=== PATIENT | male | born 1990 | race Two or more races ===

== ENCOUNTER 2025-02-23 18:10 | Inpatient (IN) | payer MEDICAID, SELFPAY ==
[2025-02-23 18:35] VITALS: BP 151/98; PULSE 103; RESP 18; TEMP 37.6; O2SAT 96
--- NOTE | 2025-02-23 18:46 | PD.EDRECHK ---
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 Patient only symptoms are dry mouth, SÁNCHEZ, and muscle cramps. Patient denies URI symptoms and fevers/chills. Limitations: no limitations Related Data Allergies Allergy/AdvReac Type Severity Reaction Status Date / Time NKA* Allergy Uncoded 02/23/25 18:14 Review of Systems Review of Systems Systems Reviewed: All systems reviewed, normal except as documented Constitutional Constitutional: Reports system reviewed and no additional complaints, except as documented, Reports as per HPI, Denies fever(s) and Reports headache(s) ENT Ears, Nose, Mouth, and Throat: Reports as per HPI, Denies disequilibrium, Reports headache(s) and Reports other (dry mouth) Cardiovascular Cardiovascular: Reports system reviewed and no additional complaints, except as documented, Denies chest pain and Denies dyspnea Respiratory Respiratory: Reports system reviewed and no additional complaints, except as documented, Denies cough and Denies dyspnea Gastrointestinal Gastrointestinal: Reports system reviewed and no additional complaints, except as documented, Denies abdominal pain, Denies nausea and Denies vomiting Musculoskeletal Musculoskeletal: Reports as per HPI and Reports muscle cramps Neurologic Neurologic: Reports system reviewed and no additional complaints, except as documented, Denies confusion, Denies disequilibrium and Reports headache(s) Psychiatric Psychiatric: Denies confusion Past Medical History Social History SMOKING STATUS: Never smoker ED Exam General Limitations: Present no limitations General appearance: Present alert and in no apparent distress Head Head exam: Present atraumatic Eye Eye exam: Present normal appearance, PERRL and EOMI ENT ENT exam: Present normal exam, normal oropharynx and mucous membranes moist Neck Neck exam: Present normal inspection, full ROM and trachea midline Chest Chest inspection: Present normal inspection and symmetric chest wall rise Respiratory Respiratory exam: Present normal lung sounds bilaterally Cardiovascular Cardiovascular exam: Present regular rate, normal rhythm and normal heart sounds Abdominal Exam Abdominal exam: Present soft and normal bowel sounds Extremities Exam Extremities exam: Present normal inspection and full ROM Back Exam Back exam: Present normal inspection and full ROM Neurological Exam Neurological exam: Present alert, oriented X3 and CN II-XII intact Psychiatric Psychiatric exam: Present normal affect and normal mood Skin Skin exam: Present warm, dry, intact and normal color Course Quality Measures none Orders Category Date Time Status COVID-19 Screening Questionnaire NOW Care 02/23/25 21:14 Active Decision to Admit X1 Care 02/23/25 21:14 Completed A1C [Glycohemoglobin w (eAG)] Stat Lab 02/23/25 19:27 Completed Beta Hydroxybutyrate Stat Lab 02/23/25 19:27 Completed CBC Stat Lab 02/23/25 19:27 Completed CMP [Comprehensive Metabolic Panel] Stat Lab 02/23/25 19:27 Completed Drug Screen,Urine Stat Lab 02/23/25 19:48 Completed Lipase Stat Lab 02/23/25 19:27 Completed Urinalysis, C/S if Indicated Stat Lab 02/23/25 19:48 Completed VBG [Venous Blood Gas] Stat Lab 02/23/25 19:27 Completed Vital Signs Vital signs: Vital Signs Temperature 99.6 F 02/23/25 18:35 Pulse Rate 103 H 02/23/25 18:35 Respiratory Rate 18 02/23/25 18:35 Blood Pressure 151/98 H 02/23/25 18:35 Pulse Oximetry (%) 96 02/23/25 18:35 Oxygen Delivery Method Room Air 02/23/25 18:35 O2 at 96% on RA and WNLs Recheck / Abnormal Lab / Rx MDM Narrative MDM Narrative:: 34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 Patient only symptoms are dry mouth, SÁNCHEZ, and muscle cramps. Patient denies URI symptoms and fevers/chills. Physical exam reveals well-appearing male. Normal WOB. Patient is afebrile, calm, and alert. No leukocytosis. CMP remarkable for mildly elevated anion gap of 17. BS 400s. Beta around 2. Blood pH normal. A1C around 10%. Spoke to IM Resident who reports to Dr. García who will admit the patient. Patient data External records reviewed:: None Clinical information provided by:: patient Social determinants that could affect healthcare access:: none Patient has the following chronic illnesses:: none How is presenting disease/condition affected by chronic disease/condition?: no chronic disease Evaluation data The following diagnostics were reviewed and interpreted by me:: lab results Lab and/or radiology exams considered but not ordered:: ordered Interpretation Summary: above Medications / Prescriptions Medications or Prescriptions considered but not ordered:: ordered Medication administrations:: Medication Administration History Acetaminophen (Acetaminophen 325 Mg Tablet) 650 mg PO Q6H PRN PRN Reason: PAIN SCALE 1-3 (mild Stop: 03/25/25 21:44 Acetaminophen (Acetaminophen 325 Mg Tablet) 650 mg PO Q6H PRN PRN Reason: Fever >100.4 Stop: 03/25/25 21:44 Hydrocodone Bitart/Acetaminophen (Hydrocodone/Apap 325 Tab) 1 tab PO Q4HR PRN PRN Reason: PAIN SCALE 7-10 (Severe Stop: 02/28/25 21:44 Dextrose (Dextrose 50%-Water Inj 50 Ml Syringe) 25 ml IV Q15MIN PRN PRN Reason: BG 50-70 responsive npo pt Stop: 03/25/25 21:44 Dextrose (Dextrose 50%-Water Inj 50 Ml Syringe) 50 ml IV Q15MIN PRN PRN Reason: BG <50 OR BG <70 & pt unresponsive Stop: 03/25/25 21:44 Glucagon (Glucagon Inj 1 Mg Vial) 1 mg IM Q15MIN PRN PRN Reason: BG <70, and no IV access Lactated Ringer's (Lactated Ringers) 1,000 mls @ 150 mls/hr IV .Q6H40M NILESH Stop: 03/25/25 21:44 Last Admin: 02/23/25 22:04 Dose: 150 mls/hr Documented By: EE Sodium Chloride (Ns) 1,000 mls @ 999 mls/hr IV .Q1H1M ONE Stop: 02/23/25 22:45 Last Admin: 02/23/25 22:03 Dose: 999 mls/hr Documented By: EE Lactated Ringer's (Lactated Ringers) 1,000 mls @ 999 mls/hr IV .Q1H1M ONE Stop: 02/23/25 22:45 Last Admin: 02/23/25 22:04 Dose: 999 mls/hr Documented By: EE Ondansetron HCl (Ondansetron Inj 2 Mg/Ml Inj 2 Ml) 4 mg IVP Q6H PRN; Protocol PRN Reason: NAUSEA OR VOMITING Stop: 03/25/25 21:44 Oxycodone/Acetaminophen (Oxycodone/Apap 5/325 Tablet) 1 tab PO Q6H PRN PRN Reason: PAIN SCALE 4-6 (Moderate Stop: 02/28/25 21:44 Pantoprazole Sodium (Pantoprazole Inj 40 Mg Vial) 40 mg IVP QDAY NILESH Stop: 03/26/25 08:59 Discontinued Medications Insulin Human Lispro (Insulin Lispro (Admelog) 1 Unit/0.01 Ml Unit) 10 unit SC X1 ONE Stop: 02/23/25 21:46 Last Admin: 02/23/25 22:04 Dose: 10 unit Documented By: LENO Co-signed By: CB above Consultations Consultation(s) initiated? (list below): Yes Diagnosis Recheck Differential Diagnosis: encounter for medication refill, encounter for wound recheck, encounter for recheck of burn, encounter for removal of sutures, warfarin-induced coagulopathy and other (hyperglycemia, DKA) Most likely diagnosis given after review of the tests above:: hyperglycemia Admission Indicated Admission indicated?: indicated Admission Request Was there a request for admission?: Yes Admission Attestation Admission request attestation: Discussed case with [Dr. García] from Hospitalist service regarding admission. Discussed patients ED course, exam findings, labs, and radiology results. The Hospitalist [agrees] to accept the patient for admission. Disposition Plan Disposition Plan: Admit Discharge Plan Plan Patient Disposition: Admit Acute Care w/in Hospital Problem List Clinical Impression: Hyperglycemia
[2025-02-23 19:39] LABS: Base Excess, Venous -2 (-3-3); O2 Saturation, Venous 75 % (96-97); PCO2, Venous 38 mmHg (36-56); PO2, Venous 40 mmHg (15-58); pH, Venous 7.38 (7.33-7.66)
[2025-02-23 19:40] LABS: Basophils # (Auto) 0.1 Thou/mm3 (0.0-0.2); Basophils % (Auto) 1 % (0-2.5); Eosinophils # (Auto) 0.1 Thou/mm3 (0.0-0.5); Eosinophils % (Auto) 1 % (0-10); Hematocrit 45.4 % (41.0-53.0); Hemoglobin 16.0 g/dL (13.5-16.0); Immature Granulocytes Auto 0.02 Thou/mm3 (0.00-0.00); Lymphocytes # (Auto) 2.4 Thou/mm3 (1.0-4.8); Lymphocytes % (Auto) 28 % (10-50); Mean Corpuscular HGB Conc 35.2 g/dl (31.0-37.0); Mean Corpuscular Hemoglobin 29.0 pg (25.0-35.0); Mean Corpuscular Volume 82 fL (80-100); Monocytes # (Auto) 0.7 Thou/mm3 (0.0-0.8); Monocytes % (Auto) 8 % (0-12); Neutrophils # (Auto) 5.3 Thou/mm3 (1.8-7.7); Neutrophils % (Auto) 63 % (37-80); Nucleated Red Blood Cell # 0.00 Thou/mm3 (0.00-0.00); Nucleated Red Blood Cell % 0 /100 WBC (0); Platelet Count 259 Thou/mm3 (140-440); RDW Standard Deviation 36.3 fL (35.1-43.9); Red Blood Count 5.52 Miln/mm3 (4.50-5.90); White Blood Count 8.5 Thou/mm3 (3.8-10.6)
[2025-02-23 19:43] LABS: Beta Hydroxybutyrate 2.3 mmol/L (<0.6)
[2025-02-23 19:52] LABS: Glucose Estimated Average 255 mg/dL (80-131); Hemoglobin A1C 10.5 % Hgb (4.8-6.0)
[2025-02-23 19:54] LABS: Collection Type, Urine Clean Catch; Squamous Epithelial Cell,Urine 0 /hpf (0-5)
[2025-02-23 20:03] LABS: Bilirubin,Urine Negative (Negative); Blood,Urine Trace (Negative); Clarity,Urine Clear (Clear/Hazy); Color,Urine Lt-Yellow (Lt Yel-Yel); Culture Indicated,Urine Not Indicated; Glucose, Urine 4+ (Negative); Hyaline Casts,Urine < 1 /hpf (0-1); Ketones,Urine 3+ (Negative); Leukocyte Esterase,Urine Negative (Negative); Nitrite,Urine Negative (Negative); PH,Urine 5.5 (5.0-7.0); Protein,Urine 1+ (Neg - Trace); RBC,Urine 7 /hpf (0-3); Specific Gravity,Urine 1.043 (1.001-1.035); Urobilinogen,Urine Negative mg/dL (0.0-1.0); WBC,Urine 3 /hpf (0-5)
[2025-02-23 20:11] LABS: Amphetamine/Methamp Scrn,U Negative (Negative); Barbiturate Screen,Urine Negative (Negative); Benzodiazepines Screen,Urine Negative (Negative); Benzoylecgonine Screen, Ur Negative (Negative); Fentanyl Screen,Urine Negative (Negative); Opiate Screen,Urine Negative (Negative); THC Screen,Urine Negative (Negative)
[2025-02-23 20:17] LABS: Alanine Aminotransferase 197 U/L (10-49); Albumin, Serum 5.2 gm/dL (3.5-5.0); Albumin/Globulin Ratio 1.7 (1.2-2.2); Alkaline Phosphatase 153 U/L (46-116); Anion Gap 17 (7-16); Aspartate Amino Transferase 124 U/L (0-34); BUN/Creatinine Ratio 10 Ratio (12-20); Bilirubin,Total 0.9 mg/dL (0.3-1.2); Blood Urea Nitrogen 13 mg/dL (9-23); Calcium 11.0 mg/dL (8.3-10.6); Calcium (Corrected) 11.0 mg/dL (8.5-10.1); Carbon Dioxide 21.3 mMol/L (20.0-31.0); Chloride 98 mMol/L (98-107); Creatinine (Component) 1.3 mg/dL (0.6-1.3); Globulin 3.1 gm/dL (2.3-3.5); Lipase 60 U/L (12-53); Potassium 4.2 mMol/L (3.4-5.1); Sodium 136 mMol/L (136-145); Total Protein 8.3 gm/dL (5.7-8.2); eGFR > 60 See Note
[2025-02-23 20:49] LABS: Osmolality,Calculated 291 (275-295)
[2025-02-23 20:50] LABS: Glucose 444 mg/dL (74-106)
--- NOTE | 2025-02-23 21:53 | ESHP_ITS ---
Documentation for date of: 02/23/25 HPI History of Present Illness History of present illness: This is a 34-year-old male with past medical history of valley fever diagnosed 13 years ago, fully treated to his knowledge, presenting to ED with concern for hyperglycemia. He is otherwise healthy, reportedly has no previous health concerns, does not not follow-up with a PCP, last annual checkup was years ago. However, over the last few days has been having diffuse abdominal pain associated with nausea and several episodes of vomiting stomach contents. Abdominal pain appears mild, unrelated to eating, lasting throughout the day. He was seen at [facility] today and was found hypoglycemic and was advised to come in to the hospital for further evaluation. Currently complains of mild shortness of breath but denies cough, chest pain or palpitations. Also denies abdominal pain, nausea, vomiting, constipation, diarrhea, urinary urgency or frequency, dysuria, or hematuria. Past Medical History: * Valley fever treated 13 years ago. Past Surgical History: * None. Medications: * None. Allergies: * NKA. Family History: * Diabetes in mother. Social History: * Drinks 1 beer daily, denies alcohol or illicit drug use. 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 ED Course: * T99.6, HR 103, BP 151/98, satting 96% on room air. * CBC unremarkable. * CHEM panel significant for GLUCOSE 444, A1c 10.5, BHB 2.3, gap 17, creatinine 1.3, GFR greater than 60, BUN 13, corrected calcium 11, lipase 60, AST 124, ALT 197, ALP 153. * UA remarkable for 1+ protein, 4+ GLUCOSE, 4+ ketones, 7 RBC. * U tox is negative. * CXR showed no active disease. Reason for admission: He likely has newly diagnosed diabetes mellitus with A1c 10.5, and GLUCOSE 444, mildly elevated anion gap 17, as well as mild JAMISON requiring admission for INSULIN and fluid resuscitation. No concern for DKA at this point given ABG and CO2. Has mild transaminitis, tachycardia, and slightly hypertensive warranting further evaluation. Exam Vital Signs Temp Pulse Resp BP Pulse Ox O2 Del Method 99.6 F 103 H 18 151/98 H 96 Room Air 02/23/25 18:35 02/23/25 18:35 02/23/25 18:35 02/23/25 18:35 02/23/25 18:35 02/23/25 18:35 Narrative Exam GENERAL * Normal appearing man, NAD. HEENT * NCAT.?SHUN. Oral mucosa is moist. Patent Nares NECK * Supple, nontender, no JVD. CHEST * Mildly tachycardic, regular rhythm, no m/g/r * CTAB, no w/r/r, symmetrical expansion. ABDOMEN * Soft, flat, nontender. No guarding/rebound tenderness/masses. * Bowel sounds presents EXTREMITIES * No edema/cyanosis.? SKIN * Warm and dry, no jaundice/rashes. NEUROMUSCULAR * No lumbar or midline, no CVA, no paraspinal muscle spasm or tenderness. * Moves all 4 extremities well, with full ROM and good CSM. * SCHAFER x4, CN II-XII grossly intact. * No focal neurologic deficits. PSYCHIATRY * Normal mood and affect, cooperative, no SI or HI or hallucinations. Results: Labs 02/24/25 04:49 02/24/25 04:49 Labs: Short CBC 02/23/25 Range/Units 19:27 WBC 8.5 (3.8-10.6) Thou/mm3 Hgb 16.0 (13.5-16.0) g/dL Hct 45.4 (41.0-53.0) % Plt Count 259 (140-440) Thou/mm3 BMP 02/23/25 19:27 Sodium 136 Potassium 4.2 Chloride 98 Carbon Dioxide 21.3 BUN 13 Creatinine 1.3 Glucose 444 H* Calcium 11.0 H Liver Function 02/23/25 Range/Units 19:27 Total Bilirubin 0.9 (0.3-1.2) mg/dL AST 124 H (0-34) U/L ALT 197 H (10-49) U/L Alkaline Phosphatase 153 H (46-116) U/L Albumin 5.2 H (3.5-5.0) gm/dL Urine 02/23/25 Range/Units 19:48 Urine Color Lt-Yellow (Lt Yel-Yel) Urine Clarity Clear (Clear/Hazy) Urine pH 5.5 (5.0-7.0) Ur Specific [place] 1.043 H (1.001-1.035) Urine Protein 1+ A (Neg - Trace) Urine Glucose (UA) 4+ A (Negative) ABG Interpretation ABG results: 02/23/25 19:27 VBG pH 7.38 VBG pCO2 38 VBG pO2 40 VBG Base Excess -2 Quality Measures Quality Measures none Medications Home Medications and Allergies Home Medications ?Medication ?Instructions ?Recorded ?Confirmed ?Type No Known Home Medications 02/24/2510/15 History Allergies Allergy/AdvReac Type Severity Reaction Status Date / Time NKA* Allergy Uncoded 02/23/25 18:14 Visit Medications Acetaminophen (Acetaminophen 325 Mg Tablet) 650 mg PO Q6H PRN PRN Reason: PAIN SCALE 1-3 (mild Stop: 03/25/25 21:44 Acetaminophen (Acetaminophen 325 Mg Tablet) 650 mg PO Q6H PRN PRN Reason: Fever >100.4 Stop: 03/25/25 21:44 Hydrocodone Bitart/Acetaminophen (Hydrocodone/Apap Tab) 1 tab PO Q4HR PRN PRN Reason: PAIN SCALE 7-10 (Severe Stop: 02/28/25 21:44 Dextrose (Dextrose 50%-Water Inj 50 Ml Syringe) 25 ml IV Q15MIN PRN PRN Reason: BG 50-70 responsive npo pt Stop: 03/25/25 21:44 Dextrose (Dextrose 50%-Water Inj 50 Ml Syringe) 50 ml IV Q15MIN PRN PRN Reason: BG <50 OR BG <70 & pt unresponsive Stop: 03/25/25 21:44 Glucagon (Glucagon Inj 1 Mg Vial) 1 mg IM Q15MIN PRN PRN Reason: BG <70, and no IV access Lactated Ringer's (Lactated Ringers) 1,000 mls @ 150 mls/hr IV .Q6H40M NILESH Stop: 03/25/25 21:44 Sodium Chloride (Ns) 1,000 mls @ 999 mls/hr IV .Q1H1M ONE Stop: 02/23/25 22:45 Lactated Ringer's (Lactated Ringers) 1,000 mls @ 999 mls/hr IV .Q1H1M ONE Stop: 02/23/25 22:45 Insulin Human Lispro (Insulin Lispro (Admelog) 1 Unit/0.01 Ml Unit) 10 unit SC X1 ONE Stop: 02/23/25 21:46 Ondansetron HCl (Ondansetron Inj 2 Mg/Ml Inj 2 Ml) 4 mg IVP Q6H PRN; Protocol PRN Reason: NAUSEA OR VOMITING Stop: 03/25/25 21:44 Oxycodone/Acetaminophen (Oxycodone/Apap 5/325 Tablet) 1 tab PO Q6H PRN PRN Reason: PAIN SCALE 4-6 (Moderate Stop: 02/28/25 21:44 Pantoprazole Sodium (Pantoprazole Inj 40 Mg Vial) 40 mg IVP QDAY NILESH Stop: 03/26/25 08:59 Assessment & Plan Plan This is a 34-year-old male with past medical history of valley fever, treated 13 years ago, was sent by his PCP for new onset hyperglycemia. Hyperglycemia New onset diabetes mellitus, likely type II He was seen by his PCP for first time for symptoms of nausea and vomiting that started 2 days ago. He was found hyperglycemic and advised ED admission. No history of diabetes in the past. Labs significant for anion gap of 17, GLUCOSE 444, A1c 10.5, BHB 2.3. UA showed 4+ GLUCOSE and 3+ ketones. Low concern for DKA, CO2 21.3, pH 7.38. ? Given 1 L LR bolus ? Given insulin lispro 10 unit subcu, DEGLUDEC 15 units X1 ? Started INSULIN DEGLUDEC 20 units HS (starting Day 2) ? Started LR maintenance at 150 cc ? Hourly GLUCOSE checks, BMP Q6H ? Diet low carb consistent diet ? Diabetic education Mildly elevated lipase enzyme Lipase mildly elevated but 60, currently denies abdominal pain, and had no abdominal pain on exam. Low suspicion for acute pancreatitis, however we are treating with IV fluids as above. And will workup with other causes such as hypertriglyceridemia in settings of likely hypoglycemia. ? Pending lipid panel ? Continue to monitor. ? Consider CT abdomen if abdominal pain worsen or does not improve Elevated BP Tachycardia Likely has primary HTN Admission BP 151/98, HR 103. May be reactive in settings of stress, possibly has undiagnosed hypertension given that h he has never seen a PCP prior to this incident. ? Started LISINOPRIL 2.5 mg daily ? Continue monitoring Mild JAMISON Acute transaminitis Admission CR 1.3, BUN 13, AST 124, ALT 197, ALP 153. He reports history of alcohol use, on average 1 beer daily. Again, currently denies abdominal pain. These findings may be related to dehydration in setting of hyperglycemia. We followed up with abdominal ultrasound showed normal gallbladder, moderate hepatomegaly with fatty infiltrates, no focal liver lesions. Will follow-up hepatitis panel. ? Pending hepatitis panel ? Pending abdominal ultrasound ? Renally dose meds, avoid overdiuresis and NEPHROTOXINS ? Daily CMP Mild hypercalcemia Corrected calcium 11.0, likely transient in settings of dehydration. Anticipate improvement with fluid hydration. ? Daily labs Health maintenance Diet: CHO consistent, low carbs GI prophylaxis: PROTONIX DVT prophylaxis: Encourage ambulation Antibiotics: Not indicated CODE STATUS: Full code Disposition: Treating new onset hyperglycemia Case was discussed with attending physician, Dr. García. Compa Valdez, DO PGY II This document was transcribed using voice recognition technology. Minor inaccuracies may be present. Attending Provider Attestation/Addendum After examination of the patient and review of the clinical data I feel that this patient needs admission to the hospital for further treatment/evaluation. I Jesús García MD, attest that I was physically present for pond portions of evaluation, and examined patient, labs and imagings and plan of care were discussed with IM residents team, and I agree with the findings and plans documented above.
[2025-02-23] MEDS: RINGERS LACTATED 1000 ML 1,000 ML 999 ML IV ×2 (22:04→23:00)
[2025-02-23] MEDS: RINGERS LACTATED 1000 ML 1,000 ML 150 ML IV (22:04)
[2025-02-23] MEDS: INSULIN LISPRO (AdmeLOG) 1 UNIT/0.01 ML UNIT 10 UNIT SC (22:04)
--- NOTE | 2025-02-23 22:05 | XR_ITS ---
Examination: Abdomen sonogram, Limited Date and time of exam: February 23, 2025 2209 hrs. Indications: Elevated liver function tests on laboratory examination today. Technique: Real-time de jesus scale transabdominal sonographic images of the upper abdomen obtained. Findings: Normal gallbladder. Normal common bile duct 0.3 cm Pancreatic head 3.1 cm Liver 20.4 cm fatty infiltration. Normal hepatopedal portal venous flow patent IVC Impression: Normal gallbladder Moderate hepatomegaly fatty infiltration no focal liver lesions.
--- NOTE | 2025-02-23 22:10 | XR_ITS ---
Examination: AP chest single view Technique: AP portable upright chest single view Date and time: February 23, 2025 1018 hrs., Comparison July 2011 Indications: Shortness of breath today. Findings: Minimal prominence left ventricle No pneumonia or pulmonary edema. The osseous structures are intact. Impression: No active disease.
[2025-02-23 22:17] VITALS: BP 137/88; PULSE 96; RESP 18; TEMP 36.7; O2SAT 98
[2025-02-23 22:18] VITALS: PULSE 88
[2025-02-23] MEDS: POTASSIUM CHL 10 mEq IVPB 10 MEQ/100 ML BAG 100 MEQ IV (23:00)
[2025-02-23] MEDS: INSULIN DEGLUDEC 5 UNIT/0.05 ML (PER 5 UNITS) 15 UNIT SC (23:03)
[2025-02-23 23:43] LABS: Anion Gap 14 (7-16); BUN/Creatinine Ratio 13 Ratio (12-20); Blood Urea Nitrogen 14 mg/dL (9-23); Calcium 9.4 mg/dL (8.3-10.6); Carbon Dioxide 22.8 mMol/L (20.0-31.0); Chloride 102 mMol/L (98-107); Creatinine (Component) 1.1 mg/dL (0.6-1.3); Glucose 337 mg/dL (74-106); Osmolality,Calculated 291 (275-295); Potassium 3.9 mMol/L (3.4-5.1); Sodium 139 mMol/L (136-145); Troponin I < 0.020 ng/mL (0.0-0.045); eGFR > 60 See Note
[2025-02-23 23:50] VITALS: BP 143/91; PULSE 82; RESP 16; TEMP 36.3; O2SAT 98
[2025-02-24] VITALS (8 sets, daily range): BP systolic 114–143; BP diastolic 67–91; PULSE 60–82; RESP 14–19; TEMP 36.1–36.4; O2SAT 96–97; BMI 34.9
[2025-02-24] MEDS: POTASSIUM CHL 10 mEq IVPB 10 MEQ/100 ML BAG 100 MEQ IV ×2 (00:16→01:20)
[2025-02-24] MEDS: INSULIN LISPRO (AdmeLOG) 1 UNIT/0.01 ML UNIT 3 UNIT SC (01:50)
[2025-02-24] MEDS: POTASSIUM CHL 10 mEq IVPB 10 MEQ/100 ML BAG 75 MEQ IV (03:10)
[2025-02-24 04:23] LABS: Creatinine,Random Urine 154 mg/dL (30-125); Protein Total, Random Urine 24 mg/dL (1-14)
[2025-02-24] MEDS: RINGERS LACTATED 1000 ML 1,000 ML 150 ML IV ×2 (04:45→13:31)
--- NOTE | 2025-02-24 04:48 | PC.NURSE ---
[facility] downtime form [id number].
[2025-02-24 05:54] LABS: Basophils # (Auto) 0.1 Thou/mm3 (0.0-0.2); Basophils % (Auto) 1 % (0-2.5); Eosinophils # (Auto) 0.2 Thou/mm3 (0.0-0.5); Eosinophils % (Auto) 3 % (0-10); Hematocrit 36.1 % (41.0-53.0); Hemoglobin 12.7 g/dL (13.5-16.0); Immature Granulocytes Auto 0.03 Thou/mm3 (0.00-0.00); Lymphocytes # (Auto) 3.0 Thou/mm3 (1.0-4.8); Lymphocytes % (Auto) 42 % (10-50); Mean Corpuscular HGB Conc 35.2 g/dl (31.0-37.0); Mean Corpuscular Hemoglobin 29.4 pg (25.0-35.0); Mean Corpuscular Volume 84 fL (80-100); Monocytes # (Auto) 0.7 Thou/mm3 (0.0-0.8); Monocytes % (Auto) 10 % (0-12); Neutrophils # (Auto) 3.2 Thou/mm3 (1.8-7.7); Neutrophils % (Auto) 44 % (37-80); Nucleated Red Blood Cell # 0.00 Thou/mm3 (0.00-0.00); Nucleated Red Blood Cell % 0 /100 WBC (0); Platelet Count 195 Thou/mm3 (140-440); RDW Standard Deviation 37.3 fL (35.1-43.9); Red Blood Count 4.32 Miln/mm3 (4.50-5.90); White Blood Count 7.2 Thou/mm3 (3.8-10.6)
[2025-02-24 06:23] LABS: Alanine Aminotransferase 142 U/L (10-49); Albumin, Serum 4.0 gm/dL (3.5-5.0); Albumin/Globulin Ratio 1.7 (1.2-2.2); Alkaline Phosphatase 110 U/L (46-116); Anion Gap 13 (7-16); Aspartate Amino Transferase 92 U/L (0-34); BUN/Creatinine Ratio 12 Ratio (12-20); Bilirubin,Total 0.8 mg/dL (0.3-1.2); Blood Urea Nitrogen 11 mg/dL (9-23); Calcium 9.3 mg/dL (8.3-10.6); Calcium (Corrected) 9.3 mg/dL (8.5-10.1); Carbon Dioxide 24.0 mMol/L (20.0-31.0); Cardiac Risk Estimate 9.1 RATIO (4.0-6.7); Chloride 103 mMol/L (98-107); Cholesterol 210 mg/dL (132-200); Creatinine (Component) 0.9 mg/dL (0.6-1.3); Free T4 (Free Thyroxine) 1.45 ng/dL (0.89-1.76); Globulin 2.3 gm/dL (2.3-3.5); Glucose 270 mg/dL (74-106); HDL Cholesterol 23 mg/dL (40-60); Magnesium 1.8 mg/dL (1.6-2.6); Osmolality,Calculated 288 (275-295); Phosphorous 3.1 mg/dL (2.4-5.1); Potassium 3.6 mMol/L (3.4-5.1); Sodium 140 mMol/L (136-145); Thyroid Stimulating Hormone 1.70 uIU/mL (0.55-4.78); Total Protein 6.3 gm/dL (5.7-8.2); Triglycerides 432 mg/dL (30-150); eGFR > 60 See Note
--- NOTE | 2025-02-24 06:25 | PC.LAC ---
HGB 6.7, HCT 20.7, Dr. Kramer was made aware, no new orders for pt at this time.
[2025-02-24 06:51] LABS: Hepatitis A Antibody IgM Non Reactive (Non React); Hepatitis B Core Antibody IgM Non Reactive (Non React); Hepatitis B Surface Antigen Non Reactive (Non React); Hepatitis C Antibody Non Reactive (Non React)
[2025-02-24] MEDS: INSULIN LISPRO (AdmeLOG) 1 UNIT/0.01 ML UNIT SC ×2 (07:50→11:53)
--- NOTE | 2025-02-24 08:57 | PC.NURSE ---
Dr. Roman at bedside and notified HR 45. Checked vs BP 116/[address] Roman, hold Lisinopril 0900 dose.
[2025-02-24] MEDS: INSULIN DEGLUDEC 5 UNIT/0.05 ML (PER 5 UNITS) 20 UNIT SC (09:05)
--- NOTE | 2025-02-24 09:12 | PC.SS ---
Patient Eulogio Aldridge is a 34 -year-old male admitted for Hyperglycemia. SS made contact with patient at bedside and patient to complete initial and discuss discharge disposition. Role and reason for the contact was explained to patient. Demographic information was verified. Pt reports he lives at home with his life partner, Letty Choe who he reports is his surrogate decision maker [phone]. He is independent with all ADLs. Patient does not utilize any source of DME, or home O2. Pt[facility] of pharmacy [facility] to [facility] for medical services. At time of discharge patient will return home, life partner will provide transportation. Discharge Plan: Home Next of kin: Life partner, Letty Choe
--- NOTE | 2025-02-24 10:34 | ESDS_ITS ---
<Statement entered by Hailey Price MD - 02/24/25 22:15> Note reviewed, I agree with most of its contents and agree with the patient's care as documented by Dr. Roman. The patient's management plan was discussed with my attending physician Dr. Jeffers. Hailey Price, PGY-2 <Statement entered by Jumana Mead MD - 02/24/25 16:51> I discussed with and supervised the applications intern physician who took care of this patient. I personally saw and examined the patient and discussed the assessment and plan with the entire medicine team, including my attending Dr. Jeffers, I agree with most of the assessment and plan as documented below Jumana Mead M.D. PGY-3 Planned Discharge Date 02/24/25 DS: Providers Provider Date of admission: 02/23/25 21:45 Primary care physician: Physician No Primary/Family Admitting Provider: Jesús García MD Attending Provider on Admission: Jesús García MD Consults: 02/23/25 22:12 Referral Registered Dietitian Routine Comment: 02/24/25 10:09 Referral Registered Dietitian Routine Comment: Attending Provider on DC: Dr. Jeffers Discharging Provider: Resident Kiera Anticipated date of discharge: 02/24/25 DS: Diagnosis Problem List Completed Was Problem List Reviewed/Reconciled?: Yes Hospital Course Hospital Course Hospital course: This is a 34-year-old male with past medical history of valley fever, treated 13 years ago, was sent by his PCP for new onset hyperglycemia. He was seen by his PCP for first time for symptoms of nausea and vomiting that started 2 days ago. He was found hyperglycemic and advised ED admission. No history of diabetes in the past. On admission, labs significant for anion gap of 17, GLUCOSE 444, A1c 10.5, BHB 2.3. UA showed 4+ Glucose and 3+ ketones. Low concern for DKA, CO2 21.3, pH 7.38. In the ED, patient received 1L bolus LR, insluin Lispro 10u, Degludec 15 x1, followed by 20u on day 2. Patient was admitted for DKA rule out and new onset diabetes mellitus. DKA was ruled out based on laboratory findings and clinical picture. Patient's anion gap improved to 13. Patient and family were educated on his new DMT2 diagnoses, treatment options and mcfp management. 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 Patient's nausea and emesis resolved and overall conditions improved. Patient remains hemodynamically stable with vital signs within normal limits. Patient was also noted to have elevated lipase of 60, however denies any abdominal pain with unremarkable physical exam. This could have been in the setting of hypertrugelyceride which was noted to be 432. IVF hydration was started upon admission. Patient was advised to follow up with their PCP in regards to his lipid panel abnormalities for further work up and management outpatient. Patient was noted to have transaminitis which could be related to his chronic alcohol use. US showed moderate hepatomegaly. Overall, patients condition improved and is hemodynamically stable with vitals within normal limits. Patient is in stable condition for discharge. Diabetes education by pharmacist and dietitian was provided to the patient. All questions answered and ED return precautions given. #Hyperglycemia #DKA r/o #New onset diabetes mellitus, likely type II #Mildly elevated lipase enzyme #Elevated BP #Tachycardia #Likely primary HTN #HLD #Hypertrygelyceraidimia #Mild JAMISON #Acute transaminitis #Mild hypercalcemia Continue checking your blood sugar at home as instructed. You will be started on insulin injection and oral medication called metformin. Aim for 30 minutes of physical activity at least 5 times a day. Keep sugar source nearby to take if you experience symptoms of low blood sugar including lightheadedness, dizziness. Follow up with your PCP in 1-2 weeks. Labs in hospital showed high cholesterol. PCP will start you on a medication for control. If you do not have a PCP, you may call [facility] on [address] at [phone]. Plan was discussed with attending physician Dr. Jeffers and senior residents Drs. Price and Alyce. Paige Roman, DO PGY-1 Status at Discharge Functional status at discharge: independent ambulation Overall status at discharge: patient is back to baseline Time Spent with Patient Time attestation: Total time spent providing and/or coordinating discharge services: Time spent: Greater than 30 minutes Exam Vital Signs Temp Pulse Resp BP Pulse Ox O2 Del Method 97.3 F 63 14 116/67 96 Room Air 02/24/25 08:00 02/24/25 08:57 02/24/25 08:00 02/24/25 08:57 02/24/25 08:00 02/24/25 08:00 Narrative Exam GENERAL * Normal appearing man, NAD. HEENT * NCAT.?SHUN. Oral mucosa is moist. Patent Nares NECK * Supple, nontender, no JVD. CHEST * RRR, no m/g/r * CTAB, no w/r/r, symmetrical expansion. ABDOMEN * Soft, flat, nontender. No guarding/rebound tenderness/masses. * Bowel sounds presents EXTREMITIES * No edema/cyanosis.? SKIN * Warm and dry, no jaundice/rashes. NEUROMUSCULAR * No lumbar or midline, no CVA, no paraspinal muscle spasm or tenderness. * Moves all 4 extremities well, with full ROM and good CSM. * SCHAFER x4, CN II-XII grossly intact. * No focal neurologic deficits. PSYCHIATRY * Normal mood and affect, cooperative, no SI or HI or hallucinations. Discharge Plan Plan Patient Disposition: HOME (Self Care) Patient condition on transfer: Stable Prescriptions/Referrals Prescriptions/Med Rec: New metformin 500 mg tablet 500 mg PO BID 30 Days Qty: 60 0RF (DME) pen needle, diabetic 29 gauge x 1/2 needle See Rx Instructions .Route Qty: 100 0RF Rx Instructions: As directed (DME) blood-glucose meter Kit See Rx Instructions .Route Qty: 1 0RF Rx Instructions: As directed (DME) Blood Glucose Test Strip See Rx Instructions .Route Qty: 50 0RF Rx Instructions: As directed insulin glargine [Lantus Solostar U-100 Insulin] 100 unit/mL (3 mL) insulin pen 20 unit subcut QDAY Qty: 15 0RF (DME) lancets Misc See Rx Instructions .Route Qty: 200 0RF Rx Instructions: As directed Referrals: No Primary/Family,Physician [Primary Care Provider] Patient/Caregiver Discharge Instructions Other Discharge Activity Instructions:: Continue checking your blood sugar at home as instructed. You will be started on insulin injection and oral medication called metformin. Aim for 30 minutes of physical activity at least 5 times a day. Keep sugar source nearby to take if you experience symptoms of low blood sugar including lightheadedness, dizziness. Follow up with your PCP in 1-2 weeks. Labs in hospital showed high cholesterol. PCP will start you on a medication for control. If you do not have a PCP, you may call [facility] on [address] at [phone]. Contin?e controlando villa nivel de az?car en lucía en casa seg?n las indicaciones. Se le administrar? tammi inyecci?n de insulina y metformina, un medicamento oral. Intente realizar 30 minutos de actividad f?josé miguel al menos 5 veces al d?a. Tenga a mano tammi shahab de az?car para tomarla si experimenta s?ntomas de hipoglucemia, kt mareos y aturdimiento. Consulte con villa m?dico de cabecera en tammi o dos semanas. Los an?lisis de laboratorio en el hospital mostraron colesterol alto. Villa m?dico de cabecera le recetar? un medicamento para controlarlo. Si no tiene un m?dico de cabecera, puede llamar al [facility] de [facility]?puneet en [place] [address] [phone]. Education Materials: Glucose Check Steps, ED Diabetes with High Blood Sugar, ED Hyperglycemia New Susp Diabetes Print Language: Lao Stand Alone Forms: Mercedes Award Info., Patient Portal Info Letter Discharge Order Discharge Orders: Discharge (Routine); Ordered 02/24/25 Ordered By: Paige Roman Quality Discharge Quality Measures VTE prophylaxis Attestestation MD Attestation I have examined the patient, reviewed labs and imaging findings, discussed the case with the resident(s), and reviewed entered orders. I agree with the plan of care as outlined in this note. Time Spent: [address] Aury MD
--- NOTE | 2025-02-24 11:30 | PC.NURSE ---
Dr. Jeffers rounded with patient and explained the DM disease process and expectations that come along with DM. Dr ordered education to be done regarding insulin and blood sugars. Patient had no questions. Dr stated D/C for later today after education is given.
--- NOTE | 2025-02-24 15:29 | PC.CC ---
Notified by Dr. Roberto Mead patient new to insulin will need DM education. Met with patient, partner and partner's daughter Robina at bedside. Education provided in [place]o and [place] Citizen with translation via MACHELLE De La Rosa. Patient able to verbalize independently that he will need to take his medications, exercise and eat healthy to control his DM. Patient last saw Dr. Zaheer Foreman @ [facility] as a walk in but intends to establish with him. Patient is currently uninsured but [facility]. Patient able to verbalize role of insulin in his DM management. Discussed use of insulin pen including preparation and insulin injection technique. Patient able to appropriately prime, select for dose and perform injection into demonstration cube. Injection site options for self-injection and assisted injections discussed. Per Robina, she and her mother both help the patient with his healthcare needs. Pertinent questions were asked regarding insulin, CGM and diabetes management and answered to the satisfaction of patient and family. Emphasized importance of productive primary care. MACHELLE provided samples of Voicendoyle Abigail 3 Plus sensors and patient intends to use for the next 30 days. Medication access discussed including potential [facility] coverage, prior authorization requirement for CGM, Lantus Insulin Val[facility] program and [facility] pharmacy. Link to Insulin Valyou program emailed to Robina at [email or web address] per her request. Notified Dr. Roman insulin education completed.
== END 2025-02-24 18:33 | disposition home or self-care (01) | DRG 420 ==
LOC: SERX 19:47 → SERHOLD 21:55 → S3NX 02-24 06:16
PROVIDERS: Physician Assistant; Admitting Provider Student in an Organized Health Care Education/Training Program; Emergency Provider Emergency Medicine; Visit Provider Student in an Organized Health Care Education/Training Program
DX: E11.65 Type 2 diabetes mellitus with hyperglycemia (principal); N17.9 Acute kidney failure, unspecified; E78.00 Pure hypercholesterolemia, unspecified; E83.52 Hypercalcemia; I10 Essential (primary) hypertension; Z79.4 Long term (current) use of insulin
CPT/HCPCS: 36415; 71045; 76705; 80048; 80053; 80061; 80074; 80307; 81001; 82010; 82570; 82803; 83036; 83690; 83735; 84100; 84156; 84439; 84443; 84484; 85025; 93005; 93225; 96361; 96365; 96375; 99284; J1815; J2470; J3480; J7030; J7120; A9270